=== PATIENT | male | born 1935 | race Caucasian/White ===

== ENCOUNTER 2016-10-26 14:04 | Emergency (ER) | payer OTHER, BC ==
[~2016-10-26] VITALS: Ht 175.3 cm; Wt 72.6 kg
[~2016-10-26 14:04] MED LIST: AMLODIPINE BES2.5 MG PO; ASCORBIC ACID500 M3 PO; ASPIR-TRIN325 M1 PO; CIPRO500 MG PO; CO Q-10400 MG PO; COLACE100 MG PO; COLACE50 MG PO; DEXILANT60 MG PO; DIPHENHYDRAMINE50 M1 PO; FIBER LAXATIV0.52 GM PO; FIORICET,ESG1 TABLET PO; FLAGYL500 MG PO; FLOMAX0.4 MG PO; HYOSCYAMINE0.125 MG PO; IMITREX6 MG/0.52 SC; MECLIZINE HCL25 MG PO; MEN'S MULTI-VI1 EACH PO; METOPROLOL TART25 MG PO; NASAL DECONGEST30 MG PO; PERCOCET 5/31 TABLET PO; VITAMIN D32000 UNI1 PO; ZOCOR40 MG PO; ZOFRAN4 MG PO
[2016-10-26 16:32] LABS: HEMATOCRIT 32.6 % (38.0-50.0); MCH 34.2 PG (29.0-34.0); MCHC 32.8 G/DL (30.0-36.0); MCV 104.2 FL (86-99); MEAN PLAT.VOLUME 11.3 uM^3 (9.0-12.4); PLATELET COUNT 231 K/uL (156-360); RBC DIS.WIDTH-CV 15.8 % (11.8-14.6); RBC DIS.WIDTH-SD 58.1 % (39-53); RED BLOOD COUNT 3.13 M/uL (4.00-5.50)
[2016-10-26 16:36] LABS: CHLORIDE 110 mEq/L (99-109); POTASSIUM 4.7 mEq/L (3.7-5.4); SODIUM 140 mEq/L (136-147)
[2016-10-26 16:38] LABS: GLUCOSE 110 mg/dL (70-99)
[2016-10-26 16:39] LABS: ANION GAP 8 MEQ/L (2-14)
[2016-10-26 16:41] LABS: GFR ESTIMATE (CALCULATED) > 59 mL/min/
[2016-10-26 16:42] LABS: UREA NITROGEN (BUN) 19 mg/dL (9-23)
[2016-10-26 16:50] LABS: TROP-I INTERPRETATION NEGATIVE; TROPONIN-I 0.02 ng/mL (0.0-0.30)
[2016-10-26 18:55] LABS: TROP-I INTERPRETATION NEGATIVE; TROPONIN-I 0.02 ng/mL (0.0-0.30)
[2016-10-26] MEDS ORDERED: XANAX0.25 MG PO (19:06)
[2016-10-26 19:21] VITALS: BP 135/84
== END 2016-10-26 19:22 | disposition home or self-care (01) ==
LOC: EME 14:04
PROVIDERS: Nurse Practitioner Family
DX: F43.9 Reaction to severe stress, unspecified (principal); R07.89 Other chest pain; D53.9 Nutritional anemia, unspecified; F41.1 Generalized anxiety disorder; F33.9 Major depressive disorder, recurrent, unspecified; E78.5 Hyperlipidemia, unspecified; I10 Essential (primary) hypertension; Z87.442 Personal history of urinary calculi; K21.9 Gastro-esophageal reflux disease without esophagitis; Z85.828 Personal history of other malignant neoplasm of skin; Z88.1 Allergy status to other antibiotic agents; Z87.891 Personal history of nicotine dependence
CPT/HCPCS: 71020; 80048; 84484; 85027; 90839; 93005; 99281; 99284

== ENCOUNTER 2016-10-28 00:26 | Observation (INO) | payer OTHER, BC ==
[~2016-10-28] VITALS: Ht 175.3 cm; Wt 71.3 kg
[~2016-10-28 00:26] MED LIST changes: +XANAX0.25 MG PO
[2016-10-28 01:27] LABS: HEMATOCRIT 30.2 % (38.0-50.0); MCH 34.5 PG (29.0-34.0); MCHC 33.1 G/DL (30.0-36.0); MCV 104.1 FL (86-99); MEAN PLAT.VOLUME 11.5 uM^3 (9.0-12.4); PLATELET COUNT 220 K/uL (156-360); RBC DIS.WIDTH-CV 15.9 % (11.8-14.6); RBC DIS.WIDTH-SD 58.7 % (39-53); WHITE BLOOD COUNT 7.2 K/uL (4.1-10.2)
[2016-10-28 01:28] LABS: EOSINOPHIL (%) 2.6 % (0-5); EOSINOPHIL COUNT 0.2 K/uL (0-0.3); IMMATURE GRANULOCYTE (%) 0.1 % (0.0-0.7); IMMATURE GRANULOCYTE COUNT 0.1 K/uL; LYMPHOCYTE COUNT 1.4 K/uL (1.0-2.8); MONOCYTE (%) 8.8 % (3-12); MONOCYTE COUNT 0.6 K/uL (0-0.8); NEUTROPHIL (%) 68.1 % (45-76); NEUTROPHIL COUNT 4.9 K/uL (1.8-6.4)
[2016-10-28 01:36] LABS: CHLORIDE 112 mEq/L (99-109); POTASSIUM 3.9 mEq/L (3.7-5.4); SODIUM 142 mEq/L (136-147)
[2016-10-28 01:38] LABS: GLUCOSE 107 mg/dL (70-99)
[2016-10-28 01:39] LABS: ANION GAP 11 MEQ/L (2-14)
[2016-10-28 01:41] LABS: SERUM ETHYL ALCOHOL < 10 mg/dL
[2016-10-28 01:42] LABS: GFR ESTIMATE (CALCULATED) > 59 mL/min/
[2016-10-28 01:43] LABS: UREA NITROGEN (BUN) 22 mg/dL (9-23)
[2016-10-28 01:48] LABS: TROP-I INTERPRETATION NEGATIVE; TROPONIN-I 0.05 ng/mL (0.0-0.30)
[2016-10-28 02:42] LABS: ADD MIUA? YES; BILIRUBIN NEGATIVE; BLOOD SMALL; COLOR YELLOW ((YELLOW)); GLUCOSE (STRIP) NEGATIVE; KETONES NEGATIVE; LEUKOCYTES NEGATIVE; NITRITE NEGATIVE; PH, URINE 5.5 (5-8); PROTEIN (STRIP) TRACE; SPECIFIC GRAVITY 1.021 (1.000-1.030); UROBILINOGEN 0.2 MG/DL (0.2-1.0)
[2016-10-28 02:52] LABS: AMPHETAMINE NEGATIVE (500 ng/mL); BARBITURATES PRESUMPTIVE POSITIVE (200 ng/mL); BENZODIAZEPINES PRESUMPTIVE POSITIVE (150 ng/mL); COCAINE NEGATIVE (150 ng/mL); METHADONE NEGATIVE (200 ng/mL); METHAMPHETAMINE NEGATIVE (500 ng/mL); OPIATES (MORPHINE) NEGATIVE (100 ng/mL); OXYCODONE NEGATIVE (100 ng/mL); PHENCYCLIDINE NEGATIVE (25 ng/mL); PROPOXYPHENE NEGATIVE (300 ng/mL); THC CANNABINOIDS NEGATIVE (50 ng/mL); TRICYCLIC ANTIDEPRESSANTS NEGATIVE (300 ng/mL)
[2016-10-28 02:53] LABS: ADD MEDTOX COMMENT Y; INTERNAL CONTROLS VALID? YES
[2016-10-28 03:03] LABS: EPITHELIAL CELLS RARE; MUCUS NONE SEEN; RED BLOOD CELLS 0-5 /HPF (0-5); WHITE BLOOD CELLS 0-5 /HPF (0-5)
[2016-10-28 03:04] LABS: BACTERIA 2+; CASTS NONE SEEN /LPF; CRYSTALS NONE SEEN; UCUL ADDED? NO
[2016-10-28 03:58] LABS: TROP-I INTERPRETATION NEGATIVE; TROPONIN-I 0.06 ng/mL (0.0-0.30)
[2016-10-28] MEDS ORDERED: AMLODIPINE BESYL5 MG PO (05:58)
[2016-10-28] MEDS ORDERED: ATORVASTATIN CA40 MG PO (05:59)
[2016-10-28] MEDS ORDERED: CELEXA10 MG PO ×2 (06:17→13:15)
[2016-10-28 06:41] LABS: BENZODIAZEPINES, URINE SCREEN POSITIVE (200 ng/mL)
[2016-10-28] MEDS ORDERED: LO-DOSE ASPIRIN81 M1 PO (07:51)
[2016-10-28] MEDS ORDERED: CO Q-10100 MG PO (07:53)
[2016-10-28] MEDS ORDERED: CYANOCOBALAM1000 MCG PO (07:53)
[2016-10-28] MEDS ORDERED: PRILOSEC20 MG PO (07:54)
[2016-10-28] MEDS ORDERED: NASAL DECONGEST30 M4 PO (07:54)
[2016-10-28] MEDS ORDERED: MUCINEX1200 MG PO (07:54)
[2016-10-28] MEDS ORDERED: ZYRTEC10 M3 PO (07:55)
[2016-10-28] MEDS ORDERED: FLONASE16 G1 BOTH NARES (07:55)
[2016-10-28] MEDS ORDERED: HYDROCORTISONE30 G2 TP (07:56)
[2016-10-28] MEDS ORDERED: EXCEDRIN MIGRA1 EAC3 PO (07:56)
[2016-10-28 10:38] LABS: TROP-I INTERPRETATION NEGATIVE; TROPONIN-I 0.06 ng/mL (0.0-0.30)
[2016-10-28 10:55] LABS: HDL CHOLESTEROL 41 MG/DL (Desirable>=40); LDL CHOLESTEROL 77 mg/dL (Desirable<100); NON-HDL CHOLESTEROL 102 mg/dL (Desirable<160); TOTAL CHOLESTEROL 143 mg/dL (Desirable<200); TRIGLYCERIDES 123 MG/DL (Normal: <150)
[2016-10-28 12:08] VITALS: BP 128/65
[2016-10-28 12:18] LABS: ALKALINE PHOSPHATASE 85 IU/L (3-129); DIRECT BILIRUBIN 0.3 mg/dL (0.0-0.3); TOTAL BILIRUBIN 1.3 MG/DL (0.0-1.0)
[2016-10-28 12:22] VITALS: BP 128/65
[2016-10-28 12:55] LABS: D-DIMER ELISA 0.98 mg/L FEU (< 0.57)
[2016-10-28 13:09] LABS: TROP-I INTERPRETATION NEGATIVE; TROPONIN-I 0.05 ng/mL (0.0-0.30)
[2016-10-28] MEDS ORDERED: XANAX0.25 MG PO (13:14)
[2016-10-28 16:19] VITALS: BP 141/82
[2016-10-28 20:50] VITALS: BP 123/60
[2016-10-29 00:23] VITALS: BP 138/60
[2016-10-29 04:21] VITALS: BP 112/55
[2016-10-29 06:53] LABS: EOSINOPHIL (%) 2.6 % (0-5); EOSINOPHIL COUNT 0.2 K/uL (0-0.3); HEMATOCRIT 29.6 % (38.0-50.0); IMMATURE GRANULOCYTE (%) 0.2 % (0.0-0.7); LYMPHOCYTE COUNT 1.2 K/uL (1.0-2.8); MCH 34.6 PG (29.0-34.0); MCHC 33.1 G/DL (30.0-36.0); MCV 104.6 FL (86-99); MEAN PLAT.VOLUME 12.8 uM^3 (9.0-12.4); MONOCYTE (%) 9.3 % (3-12); MONOCYTE COUNT 0.6 K/uL (0-0.8); NEUTROPHIL (%) 68.8 % (45-76); NEUTROPHIL COUNT 4.5 K/uL (1.8-6.4); PLATELET COUNT 233 K/uL (156-360); RBC DIS.WIDTH-CV 15.7 % (11.8-14.6); RBC DIS.WIDTH-SD 59.3 % (39-53); RED BLOOD COUNT 2.83 M/uL (4.00-5.50); WHITE BLOOD COUNT 6.5 K/uL (4.1-10.2)
[2016-10-29 07:15] LABS: ANION GAP 9 MEQ/L (2-14); C-REACTIVE PROTEIN 3.5 MG/L (0-10); CHLORIDE 106 MEQ/L (99-109); GFR ESTIMATE (CALCULATED) > 59 mL/min/; GLUCOSE 88 mg/dL (70-99); SAMPLE HEMOLYSIS CHECK 0; SAMPLE ICTERIC CHECK 0; SAMPLE LIPEMIA CHECK 0; SODIUM 140 MEQ/L (136-147); UREA NITROGEN (BUN) 20 mg/dL (9-23)
[2016-10-29 08:00] VITALS: BP 126/61
[2016-10-29] MEDS ORDERED: XANAX0.25 MG PO (08:32)
[2016-10-29] MEDS ORDERED: LASIX20 MG PO (09:38)
[2016-10-29 11:23] LABS: ERTH.SED.RATE 5 MM/HR (0-20)
[2016-10-29] MEDS ORDERED: ZOLOFT25 MG PO (12:14)
== END 2016-10-29 13:15 | disposition home or self-care (01) ==
LOC: EME 00:26 → 5WEST 05:04 → EDOF 05:04 → 5WEST 11:53
PROVIDERS: Emergency Medicine; Hospitalist; Physician Assistant Medical
DX: R07.89 Other chest pain (principal); R06.02 Shortness of breath; R06.01 Orthopnea; F41.9 Anxiety disorder, unspecified; I10 Essential (primary) hypertension; R51 Headache; E78.5 Hyperlipidemia, unspecified; I27.2 Other secondary pulmonary hypertension; I51.7 Cardiomegaly; I34.0 Nonrheumatic mitral (valve) insufficiency; Z79.82 Long term (current) use of aspirin; Z79.899 Other long term (current) drug therapy; Z98.890 Other specified postprocedural states; R01.1 Cardiac murmur, unspecified; H81.10 Benign paroxysmal vertigo, unspecified ear; Z87.442 Personal history of urinary calculi
CPT/HCPCS: 71275; 80048; 80061; 80076; 81003; 82607; 82746; 83880; 84439; 84443; 84484; 84999; 85025; 85379; 85651; 86140; 87086; 90839; 93005; 93306; 99202; 99281; 99285; G0378; G0480; J1200; J1644; J1940; J2765

== ENCOUNTER 2017-04-16 15:18 | Emergency (ER) | payer OTHER, BC ==
[~2017-04-16] VITALS: Ht 175.3 cm; Wt 71.5 kg
[~2017-04-16 15:18] MED LIST changes: +AMLODIPINE BESYL5 MG PO; +ATORVASTATIN CA40 MG PO; +CELEXA10 MG PO; +CO Q-10100 MG PO; +CYANOCOBALAM1000 MCG PO; +EXCEDRIN MIGRA1 EAC3 PO; +FLONASE16 G1 BOTH NARES; +HYDROCORTISONE30 G2 TP; +LASIX20 MG PO; +LO-DOSE ASPIRIN81 M1 PO; +MUCINEX1200 MG PO; +NASAL DECONGEST30 M4 PO; +PRILOSEC20 MG PO; +ZOLOFT25 MG PO; +ZYRTEC10 M3 PO
[2017-04-16 17:36] VITALS: BP 131/67
== END 2017-04-16 17:52 | disposition home or self-care (01) ==
LOC: EME 15:18
DX: L76.32 Postprocedural hematoma of skin and subcutaneous tissue following other procedure (principal); Y83.8 Other surgical procedures as the cause of abnormal reaction of the patient, or of later complication, without mention of misadventure at the time of the procedure; I10 Essential (primary) hypertension; E78.5 Hyperlipidemia, unspecified; K21.9 Gastro-esophageal reflux disease without esophagitis; Z90.49 Acquired absence of other specified parts of digestive tract; Z87.442 Personal history of urinary calculi; Z79.82 Long term (current) use of aspirin
CPT/HCPCS: 99281; 99284